=== PATIENT | female | born 1960 | race Caucasian/White ===

== ENCOUNTER 2021-02-21 08:03 | Emergency (ER) | payer OTHER, SELFPAY ==
--- NOTE | 2021-02-21 08:11 | ED.URI ---
HPI - URI/Sore Throat General Chief Complaint: Upper Respiratory Infection Stated Complaint: sore throat/cough /congestion Time Seen by Provider: 02/21/21 08:11 Source: patient and RN notes reviewed History of Present Illness HPI Narrative: Patient is a 60-year-old female who presents the urgent care with complaints of harsh nonproductive cough and sore throat. Patient states is been ongoing since last Monday. Reports a negative Covid test at home. Denies of any fever, chills, nausea, vomiting. Denies of any new exposures to flu/strep/Covid. Patient has been Covid vaccinated. Patient has been using Mucinex with mild symptom relief. No other acute complaints. No acute distress noted. Patient plan the plan of care. Some parts of this dictation were generated by voice recognition software and may contain typographical and/or grammatical inaccuracies. Related Data Home Medications Medication Instructions Recorded Confirmed citalopram 20 mg tablet 20 mg PO DAILY 08/20/20 02/21/21 lisinopril 5 mg tablet 5 mg PO DAILY 08/20/20 02/21/21 zolpidem 10 mg tablet 5 mg PO QHS PRN tablet 09/03/20 02/21/21 Allergies Allergy/AdvReac Type Severity Reaction Status Date / Time No Known Allergies Allergy Verified 04/17/15 18:09 Review of Systems Review of Systems: CONSTITUTIONAL: Denies fever, chills, or sweats. EYES: Denies visual changes, redness, or discharge. ENT: Denies rhinorrhea, congestion, otalgia. Reports of sore throat CARDIOVASCULAR: Denies chest pain, palpitations, or edema. RESPIRATORY: Reports of harsh cough without dyspnea GASTROINTESTINAL: Denies abdominal pain, nausea, vomiting, or diarrhea. GENITOURINARY: Denies dysuria or hematuria. SKIN: Denies rash or itching. MUSCULOSKELETAL: Denies back pain, joint pain, or myalgia. NEUROLOGIC: Denies headache, numbness, or weakness. All other systems reviewed are negative, except as documented in HPI. [facility] Past Medical History Medical History (Updated 02/21/21 @ 08:23 by RICA Shaw) Acute anxiety Diabetes Family History Family History (Updated 08/20/20 @ 16:02 by Paul Mcwilliams) Other Alcoholism in family Depression Diabetes mellitus Hypertension Lung cancer Comments At the time of my signature, I reviewed and agree with the nursing past medical, surgical, social, and family history. There is no relevant family history pertinent to the patient complaint. Exam Narrative: GENERAL: This is a well-nourished, well-developed patient, in no apparent distress. HEAD: normocephalic, atraumatic. EYES: PERRL. Sclera clear/white. Vision is grossly intact. EARS: External ears normal, auditory canals clear and without drainage, TMs normal without perforation. Hearing grossly intact. NOSE: External nose normal with no obvious nasal discharge, nares without redness, clear rhinorrhea. THROAT: Mucous membranes moist, mild erythema noted posterior oropharynx with moderate postnasal drainage NECK: Neck supple CARDIOVASCULAR: Regular rate and rhythm without murmurs, gallops, or rubs. RESPIRATORY: Clear to auscultation. Breath sounds equal bilaterally. No wheezes, rales, or rhonchi. SKIN: warm, intact with no suspicious lesions or rash, good texture and turgor. NEURO: awake, alert, and oriented to person, place and time. There were no obvious focal neurologic abnormalities. EXTREMITIES: No clubbing, cyanosis, or edema. Course Vital Signs Vital signs: Vital Signs Temperature 98.2 F 02/21/21 08:15 Pulse Rate 89 02/21/21 08:15 Respiratory Rate 16 02/21/21 08:15 Blood Pressure 146/91 H 02/21/21 08:15 Pulse Oximetry 99 02/21/21 08:15 Temperature 98.2 F 02/21/21 08:21 Pulse Rate 89 02/21/21 08:21 Respiratory Rate 16 02/21/21 08:21 Blood Pressure 146/91 H 02/21/21 08:21 Pulse Oximetry 99 02/21/21 08:21 Reviewed-patient is informed that they may have pre-hypertension or hypertension based on a blood pressure reading in t
[2021-02-21 08:15] VITALS: BP 146/91; PULSE 89; RESP 16; TEMP 36.8; O2SAT 99
[2021-02-21 08:21] VITALS: BP 146/91; PULSE 89; RESP 16; TEMP 36.8; O2SAT 99
== END 2021-02-21 08:30 | disposition home or self-care (01) ==
PROVIDERS: Emergency Provider Nurse Practitioner Family; PCP Nurse Practitioner Adult Health
DX: J40 Bronchitis, not specified as acute or chronic (principal); E11.9 Type 2 diabetes mellitus without complications
CPT/HCPCS: 99213; G0463

== ENCOUNTER 2022-05-10 13:17 | Emergency (ER) | payer OTHER, SELFPAY ==
--- NOTE | ~2022-05-10 | XR_ITS ---
XR finger 3rd RT min 2V 05/10/2022 14:08 INDICATION: Right third finger pain after fall PROCEDURE: 3 views right third finger COMPARISON: No prior studies for comparison. FINDINGS: There is an age-indeterminate avulsion from the proximal aspect of the third middle phalanx . No significant soft tissue abnormality. No foreign bodies. No other fracture or traumatic malalignm ent.. The soft tissues appear within normal limits. No foreign bodies are identified. IMPRESSION: 1: Age-indeterminate avulsion third middle phalanx proximally. Correlate for point tenderness. Reviewed, dictated and finalized at location L. CARPENTER MECHANIC IMPRESSION: 1: Age-indeterminate avulsion third middle phalanx proximally. Correlate for po int tenderness.
--- NOTE | ~2022-05-10 | CT_ITS ---
CT Facial Bones Clinical Indication: Trauma Technique: Contiguous axial scans were obtained through the facial bones followed by coronal and sagi ttal reconstructions. Dose reduction technique was used on this scan by utilizing automated exposure control and iterative reconstruction technique. The dose-length product (DLP) was 271.73 mGy-cm. Findings: No fractures are identified. The visualized paranasal sinuses are clear. Intraorbital soft tissues appear normal. Impression: No fracture identified. Reviewed, dictated and finalized at location . UITER Impression: No fracture identified.
[2022-05-10 13:23] VITALS: BP 149/87; PULSE 86; RESP 16; TEMP 36.3; O2SAT 100
--- NOTE | 2022-05-10 13:47 | ED.FALL ---
HPI - Fall General Chief Complaint: Fall Stated Complaint: fell hit head hurt finger Time Seen by Provider: 05/10/22 13:47 Source: patient and RN notes reviewed Mode of arrival: ambulatory Limitations: no limitations History of Present Illness complaint: fall Fall from: standing Fall witnessed: yes, by family Place fall occurred: street Loss of consciousness: none Prolonged down time: no Symptoms prior to fall: none Context: tripped/slipped Location of injury: face Location of injury - extremities: Right: hand ( Middle finger) Quality: dull and aching Associated symptoms (after fall): headache Related Data Home Medications Medication Instructions Recorded Confirmed citalopram 20 mg tablet 20 mg PO DAILY 08/20/20 05/10/22 lisinopril 5 mg tablet 5 mg PO DAILY 08/20/20 05/10/22 multivitamin 1 tablet PO DAILY 11/18/21 05/10/22 Allergies Allergy/AdvReac Type Severity Reaction Status Date / Time No Known Allergies Allergy Verified 05/10/22 13:33 Review of Systems Review of Systems: All systems reviewed & are unremarkable except as noted in HPI and below PMFSH Past Medical History Medical History Acute anxiety Hypertension Type 2 diabetes mellitus Surgical History Surgical History History of bilateral tubal ligation Family History Family History Other Alcoholism in family Depression Diabetes mellitus Hypertension Lung cancer Social History Social History Smoking status: Never smoker Alcohol intake: current Alcohol use details: rarely Substance use: never Exam Const: General: healthy appearing, no acute distress and alert Nutritional Appearance: well nourished Orientation/consciousness: patient oriented x3 Limitations: no limitations HENMT: Head: normal to inspection Ears: external ears normal and TM's normal bilaterally Face/Nose/Sinus: Normal external nose present and Facial tenderness on exam of face and sinuses ( left eyebrow and left inferior periorbital) Eyes: Conjunctivae: conjunctivae normal Pupils: Equal, round and reactive pupils present EOM: EOMs intact bilaterally Neck: Neck: normal visual inspection Resp: Effort & Inspection: normal respiratory effort Auscultation: clear to auscultation bilaterally Cardio: Rate: regular rate Rhythm: regular rhythm GI: GI Palp: Yes Soft to palpation and No Tenderness to palpation present (GI) Auscultation: normal bowel sounds Back/Spine/Pelvis: Cervical Spine: cervical ROM normal Thoracic/Lumbar Spine: thoraco-lumbar ROM normal Skin: General skin exam: normal color Rashes: no rashes Neuro: General: patient oriented x3, moves all extremities, no focal motor deficits and CN's II-XI intact bilaterally Speech: normal speech Gait exam (Neuro): Normal gait present Extrem: General: normal exam except as noted and no clubbing, cyanosis or edema Right upper extremity: Extremity exam: right hand tendon exam normal, tenderness of the 3rd digit ( middle and distal phalanx) and normal ROM of fingers; no crepitus Psych: Mental Status: mental status grossly normal Affect: normal affect Attitude: cooperative Course Vital Signs Vital signs: Vital Signs Temperature 36.3 C L 05/10/22 13:23 Pulse Rate 86 05/10/22 13:23 Respiratory Rate 16 05/10/22 13:23 Blood Pressure 149/87 H 05/10/22 13:23 Pulse Oximetry 100 05/10/22 13:23 Oxygen Delivery Room Air 05/10/22 13:23 Temperature 36.9 C 05/10/22 14:30 Pulse Rate 75 05/10/22 14:30 Respiratory Rate 16 05/10/22 14:30 Blood Pressure 136/81 05/10/22 14:30 Pulse Oximetry 100 05/10/22 14:30 Oxygen Delivery Room Air 05/10/22 14:30 MDM - Fall MDM Narrative Medical decision making narrative: differential diagnosis: Facial
[2022-05-10 14:30] VITALS: BP 136/81; PULSE 75; RESP 16; TEMP 36.9; O2SAT 100
== END 2022-05-10 14:40 | disposition home or self-care (01) ==
PROVIDERS: Emergency Provider Emergency Medicine; PCP Nurse Practitioner Adult Health
DX: S62.612A Displaced fracture of proximal phalanx of right middle finger, initial encounter for closed fracture (principal); S00.83XA Contusion of other part of head, initial encounter; E11.9 Type 2 diabetes mellitus without complications; I10 Essential (primary) hypertension; W01.0XXA Fall on same level from slipping, tripping and stumbling without subsequent striking against object, initial encounter; Y92.410 Unspecified street and highway as the place of occurrence of the external cause
CPT/HCPCS: 70486; 73140; 99284

== ENCOUNTER 2022-10-11 12:17 | Outpatient (RCR) | payer OTHER, SELFPAY ==
--- NOTE | 2022-10-11 13:26 | OTOPEVAL1 ---
Assessment and note entered by Cristi Rapp, TRAVIS/Jalyn, CHT Evaluation Information Assessment Status Evaluation Diagnosis Right middle finger sprain Onset Apr 2022 Subjective Information Patient reporting residual pain and stiffness. 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 Assessment OT Clinical Summary Patient referred to outpatient OT with reduced right hand use secondary to pain and stiffness following right middle finger sprain. Skilled OT indicated to maximize functional hand use and strength via therapeutic exercise, modalities, manual therapy, HEP instruction and progression. Plan of Care Interventions Therapeutic Exercise,Manual Therapy,Therapeutic Activities,Paraffin OT Services Indicated Yes Treatment Frequency and 0-1x/week for 4 weeks Duration Plan to have patient complete active/passive ROM HEP x2 weeks, have her follow up for HEP progression. These treatments will address the objective and functional deficits as defined above. The patient will be advanced safely and appropriately in order for the patient to progress towards his/her prior level of function. Additional exercises will be introduced and as well as a comprehensive home exercise program upon discharge, if needed, ?to ensure carryover of functional gains achieved in the clinic. This treatment plan has been reviewed and agreement upon by the patient.
--- NOTE | 2022-10-11 13:27 | OPREHPOC ---
Outpatient Therapy Plan of Care This is a Multidisciplinary Plan of Care that may contain components documented by all disciplines (PT, OT, and ST.) OT Problem 1 OT Problem #1 Knowledge Deficit OT Goal 1 Goal 1. Patient to be independent with all materials. Target Visit 4 OT Problem 2 OT Problem #2 Impaired Strength OT Goal 1 Goal 1. Patient to increse right interventional physician strength to 35 lbs. Target Visit 4 OT Problem 3 OT Problem #3 Pain OT Goal 1 Goal 1. Patient to report reduced pain as evidenced by being able to open a jar again with the right hand . Target Visit 4
--- NOTE | 2022-12-27 12:38 | OTOPDC ---
Assessment and note entered by Cristi Rapp, TRAVIS/Jalyn, CHT Discharge Note 12/27/22 OT Clinical Summary Patient referred to outpatient OT with dx of right middle finger sprain. She attended the initial evaluation on 10/11/22 and did not return for any follow up visits. She is being discharged at this time.
== END 2022-12-27 13:31 | disposition home or self-care (01) ==
LOC: ANHGOSHOT 12:17
PROVIDERS: PCP Physician Assistant Medical; Visit Provider Plastic Surgery
DX: S63.612D Unspecified sprain of right middle finger, subsequent encounter (principal)
CPT/HCPCS: 97018; 97110; 97165

== ENCOUNTER 2023-04-27 14:15 | Emergency (ER) | payer OTHER, SELFPAY ==
--- NOTE | ~2023-04-27 | CT_ITS ---
EXAMINATION: CT facial & cervical spine wo DATE: 04/27/2023 13:25 INDICATION: Head injury TECHNIQUE: Computed tomography (CT) of the maxillofacial region and cervical spine was performed with out intravenous contrast. The dose-length product (DLP) was 210.94 mGy-cm. Automated exposure control and iterative reconstruction technique were employed. COMPARISON: 05/10/2022 FINDINGS: MAXILLOFACIAL CT: Bone alignment is normal. There is no facial fracture. The globes and orbits are normal. There is a 1 0 mm polyp or mucous retention cyst of the right maxillary sinus. CERVICAL SPINE CT: Bone alignment is normal. There is no fracture. There is fibrous union of the posterior C1 ring. Ther e is mild loss of intervertebral disc space height at C5-6. The odontoid process is intact. The verte bral body heights are maintained. There is multilevel mild facet and uncovertebral joint osteoarthrit is. Thyroid nodules measure up to 2 mm on the right. IMPRESSION: 1. No facial fracture identified. 2. Mild cervical spondylosis without acute findings. Reviewed, dictated and finalized at location L. TION CLASSIFICATION MANAGER
--- NOTE | ~2023-04-27 | XR_ITS ---
EXAMINATION: XR knee LT 3V DATE: 04/27/2023 15:03 INDICATION: Left knee pain TECHNIQUE: Three views of the left knee were obtained. COMPARISON: None. FINDINGS: Alignment is normal. No fracture or osteochondral lesion. There is mild tricompartmental os teoarthritis characterized by tiny marginal osteophytes. No joint effusion/synovitis. Soft tissues a re unremarkable. IMPRESSION: 1. No acute osseous abnormality. Reviewed, dictated and finalized at location L. ICE HOME HEALTH AIDE
--- NOTE | ~2023-04-27 | CT_ITS ---
EXAMINATION: CT brain wo con INDICATION: Head injury COMPARISON: None TECHNIQUE: Standard unenhanced head CT. The dose-length product (DLP) was 605.33 mGy-cm. The mA was a djusted according to patient size. Iterative reconstruction technique was employed. FINDINGS: No intracranial hemorrhage, acute infarction, or abnormal mass lesion. The ventricles are n ormal. No abnormal mass effect or midline shift. The pritchard-white matter differentiation is normal. The basal cisterns are patent. The orbits are normal. The paranasal sinuses, mastoids and calvarium are normal. IMPRESSION: 1. No acute intracranial abnormality. Reviewed, dictated and finalized at location L. R SCRUBBER
[2023-04-27 13:11] VITALS: BP 176/101; PULSE 93; RESP 16; TEMP 36.5; O2SAT 99
--- NOTE | 2023-04-27 14:48 | ED.GENADULT ---
[facility] - General Adult General Chief complaint: Fall Stated complaint: FALL, POSITIVE Source: patient Mode of arrival: EMS Limitations: no limitations History of Present Illness HPI narrative: This is a 62-year-old female who presents to the ED via EMS with chief complaint of a fall and loss of consciousness that occurred today just prior to arrival. patient reports that she was walking on the sidewalk and accidentally stumbled. This caused her to go face 1st and she hit her chin on the sidewalk. Her significant other is with her and reports that she when out for no more than a minute and was able to come to with normal mentation. patient reports pain to the chin and knee but no other site of pain or injury. Denies numbness, weakness, vision change, speech change, chest pain, abdominal pain, nausea, vomiting. No blood thinner use Related Data Home Medications Medication Instructions Recorded Confirmed multivitamin 1 tablet PO DAILY 11/18/21 02/10/23 ergocalciferol (vitamin D2) 1,250 50,000 unit PO WEEKLY 02/10/23 02/10/23 mcg (50,000 unit) capsule (Vitamin D2) Allergies Allergy/AdvReac Type Severity Reaction Status Date / Time No Known Allergies Allergy Verified 02/10/23 10:54 Review of Systems Review of Systems: All systems as dictated in [facility] Past Medical History Medical History Acute anxiety Finger fracture, right Hypertension Type 2 diabetes mellitus Surgical History Surgical History History of bilateral tubal ligation Family History Family History Other Alcoholism in family Depression Diabetes mellitus Hypertension Lung cancer Social History Social History Smoking status: Never smoker Second hand tobacco smoke exposure: No Alcohol intake: current Alcohol use details: rarely Substance use: never Substance use type: does not use Lack of Transportation: No Lack of Food: Never True Current Housing: I Have Housing Concerned About Future Housing: No Difficulty Paying Gas/Electric Bills: No Difficulty Paying for Meds: No Currently Unemployed: No Education: Trade/Vocational Certificate Difficulty w/ Childcare or Family Care: No Living arrangements: with family Occupation/Education: occupation Gender identity (if verbalized by the patient): Female Sexual Orientation (if Verbalized by the Patient): Straight or Heterosexual Exam Narrative: GENERAL: Well-appearing, well-nourished, and in no acute distress. HEAD: Normocephalic, atraumatic. EYES: PERRLA and EOMI. ENT: Moderate tenderness to the chin/mandible anteriorly. No crepitus. Full range of motion of the jaw. Nares clear, no rhinorrhea or epistaxis. Mucous membranes moist. Oropharynx without tonsillar hypertrophy exudate or other lesions. NECK: Supple. No adenopathy or masses. CHEST: No respiratory distress. Clear to auscultation. No wheezes rales or rhonchi HEART: Regular rate and rhythm. No murmur heard. Normal peripheral pulses. ABDOMEN: Soft, nontender, nondistended, normal active bowel sounds. MSK: Normal range of motion. No edema. SKIN: moderate abrasion and bruising to the chin. NEURO: Alert and oriented x3. No focal deficits. PSYCH: Normal mood and affect. Course Vital Signs Vital signs: Vital Signs Temperature 97.7 F 04/27/23 13:11 Pulse Rate 93 04/27/23 13:11 Respiratory Rate 16 04/27/23 13:11 Blood Pressure 176/101 H 04/27/23 13:11 Pulse Oximetry 99 04/27/23 13:11 Temperature 98.3 F 04/27/23 15:45 Pulse Rate 71 04/27/23 15:45 Respiratory Rate 16 04/27/23 15:45 Blood Pressure 134/79 04/27/23 15:45 Pulse Oximetry 99 04/27/23 15:45 Medical Decision Making [facility] Narrative Medical dec
[2023-04-27] MEDS: KETOROLAC 15 MG/ML VIAL (*BKC) IV PUSH (14:53)
[2023-04-27 15:45] VITALS: BP 134/79; PULSE 71; RESP 16; TEMP 36.8; O2SAT 99
== END 2023-04-27 15:46 | disposition home or self-care (01) ==
PROVIDERS: Emergency Provider Physician Assistant; PCP Physician Assistant Medical
DX: S00.83XA Contusion of other part of head, initial encounter (principal); S00.81XA Abrasion of other part of head, initial encounter; I10 Essential (primary) hypertension; E11.9 Type 2 diabetes mellitus without complications; Z79.85 Long-term (current) use of injectable non-insulin antidiabetic drugs; Z79.84 Long term (current) use of oral hypoglycemic drugs; M47.812 Spondylosis without myelopathy or radiculopathy, cervical region; W01.0XXA Fall on same level from slipping, tripping and stumbling without subsequent striking against object, initial encounter
CPT/HCPCS: 70450; 70486; 72125; 73562; 96374; 99284; J1885

== ENCOUNTER 2023-05-19 08:45 | Outpatient (CLI) | payer OTHER, SELFPAY ==
--- NOTE | 2023-05-22 18:52 | P.NEURO_ITS ---
Neurology EEG Report General Information Date of Study: 05/19/23 TEST Electroencephalogram CLINICAL HISTORY syncope and collapse. Patient gives a history this is all for a walk 2 weeks ago been sees lost consciousness. No prior warning. She was a little co EEG DESCRIPTION During wakefulness the background activity consists of posterior dominant of X hertz with an amplitude of 20-40 microvolts which appears well-formed and reactive to eye opening. Anteriorly low amplitude mixed frequency activity was seen. There is a moderate anteroposterior gradient. For description of perfor med during which no significant abnormal background changes were seen. Hyperventilation not performed. Patient did not progress to stage 2 sleep. IMPRESSION This is a normal EEG obtained during awake state.
== END 2023-05-19 08:46 | disposition home or self-care (01) ==
LOC: ANHNEURO 08:45
PROVIDERS: PCP Physician Assistant Medical; Visit Provider Physician Assistant Medical
DX: R55 Syncope and collapse (principal)
CPT/HCPCS: 95816